=== PATIENT | female | born 1965 | race Caucasian/White ===

== ENCOUNTER 2020-04-09 01:19 | Outpatient (CLI) | payer OTHER, SELFPAY ==
[2020-04-09 20:51] LABS: SARS-CoV-2 RNA PCR Negative
== END 2020-04-09 01:20 | disposition home or self-care (01) ==
LOC: ANHCOVIDDT 01:19
PROVIDERS: PCP Internal Medicine; Visit Provider Internal Medicine Gastroenterology
DX: Z01.812 Encounter for preprocedural laboratory examination (principal); Z20.828 Contact with and (suspected) exposure to other viral communicable diseases
CPT/HCPCS: 87635; C9803; U0003

== ENCOUNTER 2020-04-11 01:33 | Day surgery (SDC) | payer OTHER, SELFPAY ==
[2020-04-04 14:24] VITALS: BMI 30.3
--- NOTE | 2020-04-10 12:24 | WPDANESEPPF ---
Anes - Initial Pre Proc Eval Procedure: Operation Date: 04/11/20 07:30 Proposed Procedures p Screening Colonoscopy - John Douglass MD Date/Time: 04/10/20 12:24 Surgeon: John Douglass MD Pre Op Diagnosis: Neoplasm Screening Patient Data Age: 54 Gender: F Height: 1.66 m Weight: 84 kg Allergies Allergy/AdvReac Type Severity Reaction Status Date / Time No Known Allergies Allergy Verified 04/11/20 06:12 Home Medications Medication Instructions Recorded Confirmed Type blood sugar diagnostic #10 each 04/15/19 03/19/20 History fluticasone propionate 50 2 spray NASAL DAILY 04/15/19 04/04/20 History mcg/actuation nasal spray,suspension ibuprofen-diphenhydramine citrate 2 cap PO ONCE 04/15/19 04/04/20 History 200 mg-38 mg tablet blood sugar diagnostic #100 each 07/21/19 03/19/20 Rx blood-glucose meter #1 each 07/21/19 03/19/20 Rx lancets 30 gauge #100 each 07/21/19 03/19/20 Rx lancing device with lancets kit #1 each 07/21/19 03/19/20 Rx venlafaxine 75 mg capsule,extended See Rx Instructions .ROUTE 07/26/19 04/04/20 Rx release 24 hr .COMPLEX #30 cap levocetirizine 5 mg tablet 5 mg PO DAILY #30 tablet 08/11/19 04/04/20 Rx atorvastatin 20 mg tablet 20 mg PO DAILY #90 tablet 12/25/19 04/04/20 Rx metformin 1,000 mg tablet 1,000 mg PO BID #180 tablet 01/12/20 04/04/20 Rx albuterol sulfate 90 mcg/actuation 1 puff INHALATION Q4-6H PRN #18 gm 02/13/20 04/04/20 Rx aerosol inhaler empagliflozin 10 mg tablet 10 mg PO QAM #90 tablet 02/23/20 04/04/20 Rx blood-glucose sensor #3 each 03/01/20 03/19/20 Rx lisinopril 2.5 mg tablet 5 mg PO DAILY #180 tablet 03/01/20 04/04/20 Rx dulaglutide 1.5 mg/0.5 mL 1.5 mg SUBCUT WEEKLY 30 Days #2.5 03/19/20 04/04/20 Rx subcutaneous pen injector ml trazodone 100 mg tablet 200 mg PO .hs #180 tablet 03/19/20 04/04/20 Rx Patient hx anesthesia problems: none Family hx anesthesia problems: none PMFSH Past Medical History Medical History (Updated 04/10/20 @ 12:26 by Agusto Rincon MD) Asthma Diabetes Hyperlipidemia Hypertension Obesity Sleep apnea in adult Type 2 diabetes mellitus without complications Surgical History Surgical History History of hysterectomy Hx of tonsillectomy Family History Family History Grandparent Family history of malignant neoplasm of breast in first degree relative Other Anemia Arthritis Asthma COPD (chronic obstructive pulmonary disease) Cancer Depression Diabetes mellitus Family history of malignant neoplasm Family history of malignant neoplasm of brain Family history of type 1 diabetes mellitus Hypertension Social History Social History Smoking packs per day: 0.75 Smoking cigarettes per day: 15.0 Years smoked: 25 Smoking pack-years: 18.75 Smoking status: Former smoker Second hand tobacco smoke exposure: Yes Smoking end date: 06/07/15 Alcohol intake: current Drinks per week: 20 Substance use: never Substance use type: does not use Living arrangements: with family Spiritual care concerns: No Anes - Eval Final PreProcedure Day of Procedure 04/10/20 12:24 Patient weight: obese Heart: regular rate and rhythm Lungs: clear to auscultation and normal air movement Airway: Mallampati scale class II Neurological: alert and oriented Last oral intake: >/= 8 hours ASA classification: III Emergent: no Anesthetic plan: proceed Anesthesia type and monitoring: general GIVS Informed Consent: The patient's anesthetic plan and its attendant risks and benefits were discussed with the patient/family/POA. Questions were solicited and answers provided to the satisfaction of the patient/family/POA.
[2020-04-11 06:13] VITALS: BP 107/65; PULSE 84; RESP 20; TEMP 36.8; O2SAT 97
[2020-04-11] MEDS: LACTATED RINGERS 1,000 ML 150 ML IV CONT (06:37)
[2020-04-11 06:40] LABS: Glucose Point of Care 179 (65-105)
--- NOTE | 2020-04-11 07:47 | WPDGICN ---
Assessment and Plan Assessment and plan (1) Encounter for screening colonoscopy: Code(s): Z12.11 - Encounter for screening for malignant neoplasm of colon Status: Acute Assessment and Plan: Patient presents for screening colonoscopy because of her age. She states that although being adopted her biological parents have a history of colon polyps. Plan is for surveillance colonoscopy now and at intervals in the future. GI Consult Note Consult date/time: 04/11/20 07:47 HPI: Rima Maguire is a 54 year old female Seen in evaluation at the request of Dr. Barrios. patient presents for neoplasia screening. Patient states that her weight appetite bowel movements are normal. She denies abdominal pain. Patient states her family history biological parents have had a history of colon polyps. Patient states that she is adopted. Review of Systems Review of Systems: All systems reviewed & are unremarkable except as noted in HPI and below PMFSH Past Medical History Medical History (Updated 04/11/20 @ 07:49 by John Douglass MD) Asthma Diabetes Hyperlipidemia Hypertension Obesity Sleep apnea in adult Type 2 diabetes mellitus without complications Surgical History Surgical History History of hysterectomy Hx of tonsillectomy Family History Family History Grandparent Family history of malignant neoplasm of breast in first degree relative Other Anemia Arthritis Asthma COPD (chronic obstructive pulmonary disease) Cancer Depression Diabetes mellitus Family history of malignant neoplasm Family history of malignant neoplasm of brain Family history of type 1 diabetes mellitus Hypertension Social History Social History Smoking packs per day: 0.75 Smoking cigarettes per day: 15.0 Years smoked: 25 Smoking pack-years: 18.75 Smoking status: Former smoker Second hand tobacco smoke exposure: Yes Smoking end date: 06/07/15 Alcohol intake: current Drinks per week: 20 Substance use: never Substance use type: does not use Living arrangements: with family Spiritual care concerns: No Meds Home Medications and Allergies Home Medications Medication Instructions Recorded Confirmed Type blood sugar diagnostic #10 each 04/15/19 03/19/20 History fluticasone propionate 50 2 spray NASAL DAILY 04/15/19 04/04/20 History mcg/actuation nasal spray,suspension ibuprofen-diphenhydramine citrate 2 cap PO ONCE 04/15/19 04/04/20 History 200 mg-38 mg tablet blood sugar diagnostic #100 each 07/21/19 03/19/20 Rx blood-glucose meter #1 each 07/21/19 03/19/20 Rx lancets 30 gauge #100 each 07/21/19 03/19/20 Rx lancing device with lancets kit #1 each 07/21/19 03/19/20 Rx venlafaxine 75 mg capsule,extended See Rx Instructions .ROUTE 07/26/19 04/04/20 Rx release 24 hr .COMPLEX #30 cap levocetirizine 5 mg tablet 5 mg PO DAILY #30 tablet 08/11/19 04/04/20 Rx atorvastatin 20 mg tablet 20 mg PO DAILY #90 tablet 12/25/19 04/04/20 Rx metformin 1,000 mg tablet 1,000 mg PO BID #180 tablet 01/12/20 04/04/20 Rx albuterol sulfate 90 mcg/actuation 1 puff INHALATION Q4-6H PRN #18 gm 02/13/20 04/04/20 Rx aerosol inhaler empagliflozin 10 mg tablet 10 mg PO QAM #90 tablet 02/23/20 04/04/20 Rx blood-glucose sensor #3 each 03/01/20 03/19/20 Rx lisinopril 2.5 mg tablet 5 mg PO DAILY #180 tablet 03/01/20 04/04/20 Rx dulaglutide 1.5 mg/0.5 mL 1.5 mg SUBCUT WEEKLY 30 Days #2.5 03/19/20 04/04/20 Rx subcutaneous pen injector ml trazodone 100 mg tablet 200 mg PO .hs #180 tablet 03/19/20 04/04/20 Rx Allergies Allergy/AdvReac Type Severity Reaction Status Date / Time No Known Allergies Allergy Verified 04/11/20 06:12 Vital Signs Vital Signs - 24 hr 04/11/20 06:13 Temperature 98.2 F Pulse Rate 84 Respiratory Rate 20 Blood Pressure 107
[2020-04-11 07:53] VITALS: BP 100/64; PULSE 75; RESP 14; O2SAT 98
[2020-04-11 08:03] VITALS: BP 97/62; PULSE 73; RESP 15; O2SAT 98
[2020-04-11 08:13] VITALS: BP 111/72; PULSE 71; RESP 13; O2SAT 98
== END 2020-04-11 08:40 | disposition home or self-care (01) ==
PROVIDERS: PCP Internal Medicine; Visit Provider Internal Medicine Gastroenterology
PROC: 0DJD8ZZ Inspection of Lower Intestinal Tract, Via Natural or Artificial Opening Endoscopic (ICD-10-PCS; CPT 45378; principal; 2020-04-11 07:30)
DX: Z12.11 Encounter for screening for malignant neoplasm of colon (principal); D12.5 Benign neoplasm of sigmoid colon; K64.8 Other hemorrhoids; Z83.71 Family history of colonic polyps; E11.9 Type 2 diabetes mellitus without complications; I10 Essential (primary) hypertension; J45.909 Unspecified asthma, uncomplicated; G47.30 Sleep apnea, unspecified; E66.9 Obesity, unspecified; Z68.30 Body mass index [BMI] 30.0-30.9, adult; Z87.891 Personal history of nicotine dependence; Z79.84 Long term (current) use of oral hypoglycemic drugs
CPT/HCPCS: 45385; 88305; J2704; J7120

== ENCOUNTER 2022-03-08 01:15 | Emergency (ER) | payer SELFPAY ==
[2022-03-08 01:24] VITALS: BP 183/69; PULSE 69; RESP 19; TEMP 36.8; O2SAT 100
--- NOTE | 2022-03-08 01:47 | PC.NURSE ---
Patient wheeled out of the waiting room by her visitor yelling this fucking hurts! Take me to another hospital! I am no waiting! You heathers, dons, this is fucking stupid and this fucking hurts! Patient was rolling on the floor in the waiting room yelling. Patient then got into a w/c and wheeled outside and left the ED before being told of the risks of leaving before being seen by a provider. Left at 0150.
== END 2022-03-08 02:05 | disposition left against medical advice (07) ==
LOC: ANHED 01:58
PROVIDERS: PCP Internal Medicine
DX: Z53.21 Procedure and treatment not carried out due to patient leaving prior to being seen by health care provider (principal)
CPT/HCPCS: 99199

== ENCOUNTER 2022-03-08 02:17 | Emergency (ER) | payer SELFPAY ==
--- NOTE | ~2022-03-08 | CT_ITS ---
EXAMINATION: CT abdomen pelvis w con DATE: 03/08/2022 05:44 INDICATION: RUQ abd pain TECHNIQUE: Computed tomography (CT) of the abdomen and pelvis was performed with 100 mL Omnipaque-350 intravenous contrast. Automated exposure control and iterative reconstruction technique were employe d. The dose-length product was 900.85 mGy-cm. COMPARISON: None. FINDINGS: Lower thorax: Unremarkable Liver: Fatty infiltrated. Ill-defined hyperenhancing areas peripherally near the gallbladder fossa, l ikely represents fatty sparing or transient arterial differences. Biliary/Gallbladder: Gallbladder is normal. No bile duct dilation. Pancreas: No mass or duct dilation. Spleen: Normal. Adrenals:No mass. Kidneys: Subcentimeter left lower pole hypodensity, too small to characterize. No suspicious mass, ca lcification, or significant hydronephrosis GI tract: Distal esophageal and gastric wall edema. Hypermobile cecum. No small or large bowel dilati on. Appendix is subhepatic. Mesentery/Peritoneum: No ascites, mass, or free air. Retroperitoneum: No mass. Atherosclerotic abdominal aortic and/or arterial calcifications. Pelvis: Pelvic organs are within normal limits. Soft Tissues: Soft tissues and body wall unremarkable. Bones: No acute osseous finding. IMPRESSION: Steatosis. Esophagitis/gastritis. Reviewed, dictated and finalized at location K.
--- NOTE | ~2022-03-08 | US_ITS ---
EXAMINATION: US abdomen limited DATE: 03/08/2022 09:02 INDICATION: Right upper quadrant abdominal pain TECHNIQUE: Multiple grayscale and Doppler ultrasound images of the abdomen were obtained. COMPARISON: CT dated 03/08/2022 FINDINGS: The pancreatic head and body are normal in appearance. The pancreatic tail is not visualized. The vi sualized proximal to mid aorta is normal. The visualized proximal inferior vena cava is normal. Liver has normal contour, with a smooth surface. There is increased parenchymal echogenicity and coarsened echotexture consistent with diffuse hepatic steatosis. No liver lesion identified. No intrahepatic biliary duct dilation suspected. Portal venous flow was seen in the hepatopetal, normal direction and has normal Doppler waveform. The gallbladder is normal in appearance. There is no cholelithiasis. T he common bile duct measures 3-4 mm, which is normal. Sonographic Rich sign was reported as negativ e by the surgical clinical reviewer. The right kidney measures 11.6 x 4.4 x 5.8 cm. There is normal renal contour an d echogenicity with no hydronephrosis. IMPRESSION: 1. Diffuse hepatic steatosis. Reviewed, dictated and finalized at location A.
[2022-03-08 02:25] VITALS: BP 101/71; PULSE 97; RESP 20; TEMP 36.8; O2SAT 98
--- NOTE | 2022-03-08 03:23 | ED.ABDPAIN ---
HPI - Abdominal Pain General Chief Complaint: Abdominal Pain Stated Complaint: RUQ pain Time Seen by Provider: 03/08/22 03:08 Source: RN notes reviewed History of Present Illness HPI narrative: Patient presents emergency department from home for abdominal pain. Patient dates pain began approximately 7 PM tonight pain was located in the right upper quadrant and did not radiate is described as sharp and stabbing. States the pain is improved at this time but is still present she denies any nausea vomiting or diarrhea with the symptoms she denies any fevers or chills states she did not take anything for the pain Related Data Home Medications Medication Instructions Recorded Confirmed blood sugar diagnostic #10 ea 04/15/19 05/18/21 fluticasone propionate 50 2 spray intranasal DAILY 04/15/19 05/18/21 mcg/actuation nasal spray,suspension (Allergy Relief (fluticasone)) ibuprofen-diphenhydramine citrate 2 cap PO ONCE 04/15/19 05/18/21 200 mg-38 mg tablet (Advil PM) Allergies Allergy/AdvReac Type Severity Reaction Status Date / Time No Known Allergies Allergy Verified 03/08/22 02:30 Review of Systems Review of Systems: Gen.: Denies fevers or chills ENT: Denies congestion Respiratory: Denies shortness of breath or cough CV: Denies chest pain or palpitations GI: see HPI Musculoskeletal: Denies back pain or muscle pain Neuro: Denies numbness, tingling, weakness or focal weakness Skin: Denies rash Except as documented, all other systems reviewed and negative PMFSH Past Medical History Medical History Asthma Diabetes Hyperlipidemia Hypertension Obesity Sleep apnea in adult Type 2 diabetes mellitus without complications Surgical History Surgical History History of hysterectomy Hx of tonsillectomy Family History Family History Grandparent Family history of malignant neoplasm of breast in first degree relative Other Anemia Arthritis Asthma COPD (chronic obstructive pulmonary disease) Cancer Depression Diabetes mellitus Family history of malignant neoplasm Family history of malignant neoplasm of brain Family history of type 1 diabetes mellitus Hypertension Social History Social History Smoking packs per day: 0.75 Smoking cigarettes per day: 15.0 Years smoked: 25 Smoking pack-years: 18.75 Smoking status: Former smoker Second hand tobacco smoke exposure: Yes Smoking end date: 06/07/15 Alcohol intake: current Drinks per week: 20 Substance use: never Substance use type: does not use Spiritual care concerns: No Exam Narrative: APPEARANCE: No acute distress, nontoxic, resting in bed HEENT: Normocephalic, atraumatic, OMM RESPIRATORY: No respiratory distress, clear to auscultation bilaterally with no rhonchi wheezing or rales CARDIOVASCULAR: RRR s murmur ABDOMINAL: Soft nondistended tender palpation right upper quadrant no tenderness left upper quadrant, left lower quadrant and right lower quadrant no rebound or guarding MUSCULOSKELETAl: Moves all extremities. No clubbing, cyanosis or edema. NEURO: Awake and alert. Following commands, speech normal, no focal deficits SKIN:: Warm, dry. Normal Color PSYCHIATRIC: Normal affect/mood Course Course Emergency Course: Patient states that they are feeling much better at this time. States abdominal pain has improved. Repeat abdominal exam shows the patient's abdomen to be soft with no surgical abdomen present. Discussed with patient results of workup and diagnosis. Discussed need for follow-up with primary care physician, reasons to return to the emergency department in proper use of medication. Patient understands and agrees to current treatment plan with pain in right upper quadrant is improved suspec
[2022-03-08] MEDS: SODIUM CHLORIDE 0.9% IV 1,000 ML 999 ML IV CONT (04:09)
[2022-03-08] MEDS: KETOROLAC 30 MG/ML VIAL (*BKC) IV PUSH (04:09)
[2022-03-08 04:21] LABS: Basophils Percent Auto 0.5 % (0.2-1.2); Eosinophils Absolute Auto 0.1 K/mm3 (0-0.3); Eosinophils Percent Auto 1.9 % (0-4.4); Hematocrit 42.1 % (37.0-47.0); Hemoglobin 14.5 g/dL (12.0-15.0); Immature Granulocyte Absolute 0.02 K/mm3 (0.00-0.031); Immature Granulocyte Percent A 0.4 % (0-0.5); Mean Corpuscular HGB Conc 34.4 g/dl (32-36); Mean Corpuscular Hemoglobin 33.6 pg (26-34); Mean Corpuscular Volume 97.7 fl (80-100); Monocytes Absolute Auto 0.7 K/mm3 (0.1-0.6); Monocytes Percent Auto 11.4 % (2.6-8.5); Neutrophils Absolute Auto 2.1 K/mm3 (1.3-6.7); Neutrophils Percent Auto 36.8 % (45.5-73.1); Platelet Count Result 260 k/mm3 (150-375); Red Blood Count 4.31 M/mm3 (4.2-5.4); Red Cell Distribution Width 11.8 % (11.5-14.5); White Blood Count 5.7 K/mm3 (4.5-10.0)
[2022-03-08 04:22] LABS: Appearance Urine Clear (Clear); Bilirubin Urine Negative (Negative); Blood Urine Negative (Negative); Color Urine Yellow (Yellow); Glucose Urine UA Negative (Negative); Ketones Urine Negative (Negative); Leukocyte Esterase Ur 1+ LEU/UL (Negative); Nitrate Urine Negative (Negative); Protein Urine Negative (Negative); Specific Grav Ur <= 1.005 (1.001-1.035); Urobilinogen Urine 0.2 mg/dL (<2.0); pH Urine 5.5 (5.0-9.0)
[2022-03-08 04:28] LABS: Bacteria Urine Trace /hpf; RBC Urine 0-2 /hpf (0-2); Squamous Epithelial Cell Urine Rare /hpf (Few); WBC Urine 0-3 /hpf
[2022-03-08 04:30] LABS: Add Urine Microscopic? YES; Alanine Aminotransferase 40 U/L (6-35); Albumin Level 4.9 g/dL (3.5-5.1); Alkaline Phosphatase 66 U/L (38-126); Anion Gap 10 mmol/L (8-16); Aspartate Amino Transferase 41 U/L (14-36); Bilirubin,Total 0.3 mg/dL (0.2-1.3); Blood Urea Nitrogen 9 mg/dL (7-17); Calcium 9.3 mg/dL (8.4-10.2); Carbon Dioxide 28 mmol/L (22-30); Chloride 105 mmol/L (98-107); Estimated Glomerular Filt Rate > 60; Glucose 128 mg/dL (65-110); Lipase 373 U/L (23-300); Potassium 3.8 mmol/L (3.4-5.0); Sodium 143 mmol/L (137-145)
[2022-03-08 05:00] VITALS: BP 91/58; PULSE 91; RESP 18; O2SAT 96
[2022-03-08 05:57] VITALS: BP 101/72; PULSE 94; RESP 18; O2SAT 99
--- NOTE | 2022-03-08 07:10 | PC.NURSE ---
Report given to PRIAY Sarabia.
[2022-03-08] MEDS: FAMOTIDINE 20 MG/2 ML VIAL IV PUSH (07:37)
[2022-03-08 09:42] VITALS: BP 124/86; PULSE 78; RESP 16; O2SAT 100
== END 2022-03-08 09:42 | disposition home or self-care (01) ==
PROVIDERS: Emergency Provider Emergency Medicine; PCP Internal Medicine
DX: R10.11 Right upper quadrant pain (principal); J45.909 Unspecified asthma, uncomplicated; E11.9 Type 2 diabetes mellitus without complications; E78.5 Hyperlipidemia, unspecified; I10 Essential (primary) hypertension; G47.30 Sleep apnea, unspecified; Z87.891 Personal history of nicotine dependence; Z79.84 Long term (current) use of oral hypoglycemic drugs; Z79.51 Long term (current) use of inhaled steroids; Z79.899 Other long term (current) drug therapy
CPT/HCPCS: 36415; 74177; 76705; 80053; 81001; 83690; 85025; 96361; 96374; 96375; 99284; J1885; J7030; Q9967

== ENCOUNTER 2022-11-12 16:29 | Outpatient (CLI) | payer OTHER, SELFPAY ==
--- NOTE | ~2022-11-12 | MM_ITS ---
EXAMINATION: MM screening nighat BI w gisell HISTORY: Screening mammogram, family history of breast cancer in her mother. TECHNIQUE: Craniocaudal and mediolateral oblique 3-D tomosynthesis images were obtained and synthetic 2-D images were generated. CAD analysis was submitted and interpreted. COMPARISON: 08/17/2017 BREAST PARENCHYMAL COMPOSITION:The breasts are almost entirely fatty FINDINGS: No suspicious mass, calcification, or architectural distortion are identified in either shauna ast to suggest malignancy. There has been no suspicious interval change. IMPRESSION: No mammographic evidence of malignancy. Recommend routine screening mammography in one year. BI-RADS Category 1: Negative Reviewed, dictated and finalized at location .
== END 2022-11-12 16:30 | disposition home or self-care (01) ==
PROVIDERS: PCP Internal Medicine; Visit Provider Internal Medicine
DX: Z12.31 Encounter for screening mammogram for malignant neoplasm of breast (principal)
CPT/HCPCS: 77063; 77067

== ENCOUNTER 2023-11-28 23:38 | Inpatient (IN) | payer BC, SELFPAY ==
--- NOTE | ~2023-11-28 | XR_ITS ---
Portable chest x-ray Comparison: 03/18/2019 Clinical History: Preoperative evaluation Findings: Lungs are clear, without focal consolidation or pleural effusion. Cardiomediastinal silho uette is stable. Bones and soft tissues are unremarkable. Impression: Clear lungs. Reviewed, dictated and finalized at location . Impression: Clear lungs.
--- NOTE | ~2023-11-28 | CT_ITS ---
CT of the Abdomen and Pelvis: Indication: Abdominal pain Technique: 2.5 mm axial scans were obtained through the abdomen and pelvis following intravenous adm inistration of 100 cc of Omnipaque 350. Dose reduction technique was used on this scan by utilizing a utomated exposure control and iterative reconstruction technique. The dose-length product (DLP) was 6 31.49 mGy-cm. COMPARISON: 03/08/2022 Findings: Scans through the lung bases are unremarkable. There is diffuse hepatic steatosis. The spleen, pancreas, gallbladder, adrenals and kidneys are withi n normal limits. No evidence of aortic aneurysm. No lymphadenopathy. No bowel obstruction. Retrocecal appendix is dilated to 12 mm with periappendiceal inflammatory alexander e and probable appendicolith present. No abscess or free air. Images through the pelvis were performed. Urinary bladder unremarkable. No pelvic mass seen. Status p ost hysterectomy. No ascites. Impression: Acute appendicitis, as detailed above. No abscess or free air. Reviewed, dictated and finalized at location . Impression: Acute appendicitis, as detailed above. No abscess or free air.
[2023-11-28 23:46] VITALS: BP 170/88; PULSE 112; RESP 15; TEMP 37.4; O2SAT 96
[2023-11-29] VITALS (21 sets, daily range): BP systolic 104–140; BP diastolic 28–91; PULSE 78–117; RESP 14–20; TEMP 36.8–37.6; O2SAT 94–100; BMI 31.1
--- NOTE | 2023-11-29 00:04 | ECG_ITS ---
Test Date: 2023-11-29 00:08:47 Measurements Intervals [place] Rate: 108 P: 60 FL: 147 QRS: 67 QRSD: 79 T: 48 QT: 362 QTc: 487 Interpretive Statements SINUS TACHYCARDIA ABNORMAL RHYTHM ECG No previous ECG available for comparison Electronically Signed On 11-29-2023 07:28:27 CDT by Seamus Blunt M.D.
[2023-11-29 00:09] LABS: Basophils Absolute Auto 0.1 K/mm3 (0.0-0.1); Basophils Percent Auto 0.3 % (0.2-1.2); Eosinophils Absolute Auto 0.1 K/mm3 (0-0.3); Eosinophils Percent Auto 0.7 % (0-4.4); Hemoglobin 14.4 g/dL (12.0-15.0); Immature Granulocyte Absolute 0.04 K/mm3 (0.00-0.031); Immature Granulocyte Percent A 0.3 % (0-0.5); Lymphocytes Absolute Auto 2.42 K/mm3 (0.9-3.2); Lymphocytes Percent Auto 16.3 % (18.3-44.2); Mean Corpuscular HGB Conc 34.3 g/dl (32-36); Mean Corpuscular Hemoglobin 32.7 pg (26-34); Mean Corpuscular Volume 95.2 fl (80-100); Mean Platelet Volume 9.3 fl (7.4-10.4); Monocytes Absolute Auto 1.2 K/mm3 (0.1-0.6); Neutrophils Percent Auto 74.4 % (45.5-73.1); Platelet Count Result 283 k/mm3 (150-375); Red Blood Count 4.41 M/mm3 (4.2-5.4); Red Cell Distribution Width 11.2 % (11.5-14.5); White Blood Count 14.8 K/mm3 (4.5-10.0)
[2023-11-29 00:22] LABS: Alanine Aminotransferase 35 U/L (6-35); Albumin Level 5.1 g/dL (3.5-5.1); Alkaline Phosphatase 77 U/L (38-126); Anion Gap 14 mmol/L (4-12); Aspartate Amino Transferase 32 U/L (14-36); Bilirubin,Total 0.7 mg/dL (0.2-1.3); Blood Urea Nitrogen 10 mg/dL (7-17); Calcium 9.8 mg/dL (8.4-10.2); Carbon Dioxide 22 mmol/L (22-30); Chloride 103 mmol/L (98-107); Estimated CRCL calculation 79 ml/min; Estimated Glomerular Filt Rate > 60; Glucose 173 mg/dL (65-110); Lipase 154 U/L (23-300); Potassium 3.7 mmol/L (3.4-5.0); Sodium 139 mmol/L (137-145)
[2023-11-29 00:32] LABS: Appearance Urine Cloudy (Clear); Bilirubin Urine Negative (Negative); Blood Urine Trace (Negative); Color Urine Yellow (Yellow); Glucose Urine UA 1+ mg/dL (Negative); Ketones Urine 2+ mg/dL (Negative); Leukocyte Esterase Ur 3+ LEU/UL (Negative); Nitrate Urine Negative (Negative); Protein Urine Negative (Negative); Specific Grav Ur 1.016 (1.001-1.035); Urobilinogen Urine 0.2 mg/dL (<2.0); pH Urine 5.5 (5.0-9.0)
[2023-11-29 00:33] LABS: Add Urine Microscopic? YES
[2023-11-29] MEDS: HYDROmorphone HCL INJ (*CRX) 1 MG/ML SYR IV PUSH ×2 (01:12→03:21)
[2023-11-29] MEDS: ONDANSETRON INJ 4 MG/2 ML VIAL 8 MG IV PUSH (01:12)
[2023-11-29] MEDS: SODIUM CHLORIDE 0.9% IV 2,500 ML 999 ML IV CONT (01:13)
--- NOTE | 2023-11-29 01:52 | ED.GENADULT ---
HPI - General Adult General Chief complaint: Abdominal Pain Stated complaint: abd pain Time Seen by Provider: 11/29/23 00:06 History of Present Illness HPI narrative: This is a 50-year-old female presenting with right-sided flank pain. The pain started at 2:00 a.m. this afternoon although was quite mild at that time. now has become quite severe. Pain is described as a sharp pain on the right side. It is associated with nausea and vomiting. Last bowel movement was this morning. Patient denies fevers chest pain or difficulty breathing. She still has her gallbladder and appendix. No history of kidney stones. Related Data Home Medications Medication Instructions Recorded Confirmed blood sugar diagnostic #10 ea 04/15/19 10/13/23 Allergies Allergy/AdvReac Type Severity Reaction Status Date / Time No Known Allergies Allergy Verified 10/13/23 07:56 [facility] Past Medical History Medical History Asthma Diabetes Hyperlipidemia Hypertension Obesity Sleep apnea in adult Type 2 diabetes mellitus without complications Surgical History Surgical History History of hysterectomy Hx of tonsillectomy Family History Family History Grandparent Family history of malignant neoplasm of breast in first degree relative Other Anemia Arthritis Asthma COPD (chronic obstructive pulmonary disease) Cancer Depression Diabetes mellitus Family history of malignant neoplasm Family history of malignant neoplasm of brain Family history of type 1 diabetes mellitus Hypertension Social History Social History Smoking packs per day: 0.75 Smoking cigarettes per day: 15.0 Years smoked: 25 Smoking pack-years: 18.75 Smoking status: Former smoker Second hand tobacco smoke exposure: Yes Smoking end date: 06/07/15 Alcohol intake: current Drinks per week: 20 Substance use: never Substance use type: does not use Lack of Transportation: No Lack of Food: Never True Current Housing: I Have Housing Concerned About Future Housing: No Difficulty Paying Gas/Electric Bills: No Difficulty Paying for Meds: No Currently Unemployed: No Education: Associate Degree Difficulty w/ Childcare or Family Care: No Living arrangements: with family Spiritual care concerns: No Exam Narrative: APPEARANCE: Patient is lying on the bed and can not seem to get comfortable Head: atraumatic. EYES: EOMI, NOSE: Atraumatic NECK: Trachea midline RESPIRATORY: No increased rate of breathing CARDIOVASCULAR: RRR, ABDOMINAL: tenderness to palpation on the entire right side of the abdomen. Right CVA tenderness. MUSCULOSKELETAl: No obvious deformities NEURO: Alert. Moving 4/4 extremities SKIN:: Warm, dry. Normal color PSYCHIATRIC: Normal affect Course Vital Signs Vital signs: Vital Signs Temperature 99.3 F 11/28/23 23:46 Pulse Rate 112 H 11/28/23 23:46 Respiratory Rate 15 11/28/23 23:46 Blood Pressure 170/88 H 11/28/23 23:46 Pulse Oximetry 96 11/28/23 23:46 Oxygen Delivery Room Air 11/28/23 23:46 Temperature 99.3 F 11/28/23 23:46 Pulse Rate 111 H 11/29/23 05:10 Respiratory Rate 17 11/29/23 05:10 Blood Pressure 114/79 11/29/23 05:10 Pulse Oximetry 96 11/29/23 05:10 Oxygen Delivery Room Air 11/28/23 23:46 Medical Decision Making MDM Narrative Medical decision making narrative: -Course: 58-year-old female presenting with 1 day of right-sided abdominal pain. White count 14.8. CT showed acute appendicitis without evidence perforation. Patient given fluid resuscitation, Zosyn, pain medication and antiemetics. Case was discussed with Dr. Chris Nunez who has accepted the admission. -DDX includes but is not limited to: Kidney stone, gallbl
[2023-11-29] MEDS: PIPERACILLN/TAZ 3.375GM/NS50ML 3.375 GM/50 ML BAG IVPB ×2 (04:42→12:40)
[2023-11-29 05:16] LABS: Lactic Acid Reflex 0.8 mmol/L (0.7-2.0)
[2023-11-29] MEDS: LACTATED RINGERS 1,000 ML 125 ML IV CONT ×2 (05:29→19:35)
[2023-11-29] MEDS: IBUPROFEN IV 800 MG/200 ML 800 MG/200 ML BAG 400 MG IVPB (05:31)
--- NOTE | 2023-11-29 06:24 | ADMGEN ---
This patient, Rima Maguire, was admitted to 2 Medical Room 250-01. Patient/family oriented to hospital policies and general routines including ID bracelet, bed and alarms, visiting hours, pain management, procedures, bathroom and other care routines, personal items, smoking policy, room service/diet, and visiting hours. Information on how to activate the Rapid Response Team has been discussed. Patient/Family are encouraged to report perceived risks to care and to ask questions if they do not understand what they are told or what they should do.
--- NOTE | 2023-11-29 08:35 | PM.IMHP ---
H&P: HPI History of Present Illness Date/Time: 11/29/23 08:35 Chief Complaint: Abdominal pain Narrative: This is a 58-year-old woman with a history of type 2 diabetes, HTN, ALEXEY, and hyperlipidemia, who presented to the ER last night with complaints of abdominal pain starting yesterday around 2:00 pm. She reports it was a cramping pain in her RLQ. This pain progressed throughout the day and into the evening. She developed nausea and vomiting. Her pain was aggravated by movement and deep breathing. She also reports having a similar mild pain in her RLQ intermittently over the past month or so. She didn't pay attention to this because it would typically subside in a short amount of time. Workup in the ER showed mild leukocytosis with a WBC count of 14,[address] evidence of acute appendicitis. No perforation or abscess seen on CT. She was admitted in this setting and started on broad-spectrum IV antibiotics, IV fluids, and made NPO. Previous abdominal surgeries include a total abdominal hysterectomy. Review of Systems Review of Systems: All systems reviewed & are unremarkable except as noted in HPI and below PMFSH Past Medical History Medical History Asthma Diabetes Hyperlipidemia Hypertension Obesity Sleep apnea in adult Type 2 diabetes mellitus without complications Surgical History Surgical History History of hysterectomy Hx of tonsillectomy Family History Family History Grandparent Family history of malignant neoplasm of breast in first degree relative Other Anemia Arthritis Asthma COPD (chronic obstructive pulmonary disease) Cancer Depression Diabetes mellitus Family history of malignant neoplasm Family history of malignant neoplasm of brain Family history of type 1 diabetes mellitus Hypertension Social History Social History Smoking packs per day: 0.75 Smoking cigarettes per day: 15.0 Years smoked: 25 Smoking pack-years: 18.75 Smoking status: Former smoker Second hand tobacco smoke exposure: Yes Smoking end date: 06/07/15 Alcohol intake: current Drinks per week: 35 Substance use: never Substance use type: does not use Do You Feel Safe in your Home?: Yes Lack of Transportation: No Lack of Food: Never True Current Housing: I Have Housing Concerned About Future Housing: No Difficulty Paying Gas/Electric Bills: No Difficulty Paying for Meds: No Currently Unemployed: No Education: Associate Degree Difficulty w/ Childcare or Family Care: No Living arrangements: with family Spiritual care concerns: No Meds Home Medications and Allergies Home Medications Medication Instructions Recorded Confirmed Type blood sugar diagnostic #10 ea 04/15/19 11/29/23 History blood-glucose meter (YaSabeTouch #1 ea 07/21/19 11/29/23 Rx Ultra2 Meter kit) lancets 30 gauge (Wenwo DelFolica #100 ea 07/21/19 11/29/23 Rx Plus Lancet) lancing device with lancets kit #1 ea 07/21/19 11/29/23 Rx (Wenwo DelFolica Lancing Device kit) blood sugar diagnostic #100 ea 02/16/22 11/29/23 Rx rizatriptan 10 mg tablet (Maxalt) See Rx Instructions PO .COMPLEX #9 05/25/22 11/29/23 Rx tabs blood-glucose meter,continuous #1 ea 04/08/23 11/29/23 Rx (Dexcom G6 White Metal Corrosion Proofer) blood-glucose sensor (Dexcom G6 #3 ea 04/08/23 11/29/23 Rx Sensor device) blood-glucose transmitter (Dexcom #1 ea 04/08/23 11/29/23 Rx G6 Transmitter device) metformin 1,000 mg tablet 500 mg PO BID #180 tabs 04/08/23 11/29/23 Rx atorvastatin 40 mg tablet 40 mg PO DAILY #90 tabs 06/03/23 11/29/23 Rx albuterol sulfate 90 mcg/actuation 1 puff inhalation Q4-6H PRN 09/14/23 11/29/23 Rx aerosol inhaler (ProAir HFA) shortness of breath or wheezing #18 grams tirzepatide 7.5 mg/0
[2023-11-29] MEDS: HYDROmorphone HCL INJ (*CRX) 1 MG/ML SYR 0.5 MG IV PUSH ×3 (08:45→14:13)
[2023-11-29 09:23] LABS: Glucose Point of Care 105 mg/dl (65-105)
[2023-11-29 11:44] LABS: Glucose Point of Care 105 mg/dl (65-105)
--- NOTE | 2023-11-29 14:42 | WPDANESEPPF ---
Anes - Initial Pre Proc Eval Procedure: Operation Date: 11/29/23 15:30 Proposed Procedures p Laparoscopic Appendectomy - Delroy Lugo MD Date/Time: 11/29/23 14:42 Surgeon: Chris Nunez MD Pre Op Diagnosis: Appendicitis Patient Data Age: 58 Gender: F Height: 1.65 m Weight: 85 kg Last Vital Signs Temp 98.4 F 11/29/23 10:00 Pulse 113 H 11/29/23 12:00 Resp 20 11/29/23 10:00 BP 131/72 11/29/23 10:00 Pulse Ox 98 11/29/23 10:00 O2 Del Method Nasal Cannula 11/29/23 08:45 O2 Flow Rate 1 11/29/23 08:45 Allergies Allergy/AdvReac Type Severity Reaction Status Date / Time No Known Allergies Allergy Verified 11/29/23 14:40 Home Medications Medication Instructions Recorded Confirmed Type blood sugar diagnostic #10 ea 04/15/19 11/29/23 History blood-glucose meter (Synthaceuch #1 ea 07/21/19 11/29/23 Rx Ultra2 Meter kit) lancets 30 gauge (Synthaceuch DelFever #100 ea 07/21/19 11/29/23 Rx Plus Lancet) lancing device with lancets kit #1 ea 07/21/19 11/29/23 Rx (Real Food Blends DelFever Lancing Device kit) blood sugar diagnostic #100 ea 02/16/22 11/29/23 Rx rizatriptan 10 mg tablet (Maxalt) See Rx Instructions PO .COMPLEX #9 05/25/22 11/29/23 Rx tabs blood-glucose meter,continuous #1 ea 04/08/23 11/29/23 Rx (Dexcom G6 Bell Ringer) blood-glucose sensor (Dexcom G6 #3 ea 04/08/23 11/29/23 Rx Sensor device) blood-glucose transmitter (Dexcom #1 ea 04/08/23 11/29/23 Rx G6 Transmitter device) metformin 1,000 mg tablet 500 mg PO BID #180 tabs 04/08/23 11/29/23 Rx atorvastatin 40 mg tablet 40 mg PO DAILY #90 tabs 06/03/23 11/29/23 Rx albuterol sulfate 90 mcg/actuation 1 puff inhalation Q4-6H PRN 09/14/23 11/29/23 Rx aerosol inhaler (ProAir HFA) shortness of breath or wheezing #18 grams tirzepatide 7.5 mg/0.5 mL 7.5 mg (0.5 mL) subcut WEEKLY #6 mL 09/20/23 11/29/23 Rx subcutaneous pen injector (Mounjaro) empagliflozin 10 mg tablet 10 mg PO QAM #90 tabs 10/26/23 11/29/23 Rx (Jardiance) venlafaxine 150 mg 150 mg PO DAILY #90 caps 10/26/23 11/29/23 Rx capsule,extended release 24 hr lisinopril 5 mg tablet 5 mg PO DAILY #90 tabs 11/16/23 11/29/23 Rx ibuprofen 600 mg tablet 600 mg PO TID PRN Pain (Scale 11/29/23 11/29/23 History Score 1-3) trazodone 100 mg tablet 200 mg PO HS 11/29/23 11/29/23 History Laboratory Tests 11/29/23 11/29/23 11/29/23 00:02 04:57 09:00 WBC 14.8 H K/mm3 (4.5-10.0) RBC 4.41 M/mm3 (4.2-5.4) Hgb 14.4 g/dL (12.0-15.0) Hct 42.0 % (37.0-47.0) MCV 95.2 fl (80-100) MCH 32.7 pg (26-34) MCHC 34.3 g/dl (32-36) RDW 11.2 L % (11.5-14.5) Plt Count 283 k/mm3 (150-375) MPV 9.3 fl (7.4-10.4) Immature Gran % (Auto) 0.3 % (0-0.5) Neut % (Auto) 74.4 H % (45.5-73.1) Lymph % (Auto) 16.3 L % (18.3-44.2) [place] % (Auto) 8.0 % (2.6-8.5) Eos % (Auto) 0.7 % (0-4.4) Baso % (Auto) 0.3 % (0.2-1.2) Lymph # (Auto) 2.42 K/mm3 (0.9-3.2) [place] # (Auto) 1.2 H K/mm3 (0.1-0.6) Eos # (Auto) 0.1 K/mm3 (0-0.3) Baso # (Auto) 0.1 K/mm3 (0.0-0.1) Abs Immat Gran (auto) 0.04 H K/mm3 (0.00-0.031) Absolute Neuts (auto) 11.0 H K/mm3 (1.3-6.7) Absolute Nucleated RBC 0.000 K/mm3 (0.0-0.012) Nucleated RBC % 0.0 % (0.0-0.2) Sodium 139 mmol/L (137-145) Potassium 3.7 mmol/L (3.4-5.0) Chloride 103 mmol/L (98-107) Carbon Dioxide 22 mmol/L (22-30) Anion Gap 14 H mmol/L (4-12) BUN 10 mg/dL (7-17) Creatinine 0.70 mg/dL (0.7-1.0) Estim Creat Clear Calc 79 ml/min Estimated GFR > 60 (59 - ) Glucose 173 H mg/dL (65-110) POC Capillary Glucose 105 mg/dl (65-105) Lactic Acid 0.8 mmo
[2023-11-29 14:58] LABS: Glucose Point of Care 137 mg/dl (65-105)
[2023-11-29] MEDS: LACTATED RINGERS 1,000 ML 30 ML IV CONT ×2 (15:45→17:28)
--- NOTE | 2023-11-29 16:04 | WPDHPUPDATE1 ---
History and Physical Update Update Date/Time: 11/29/23 16:04 History and Physical has been reviewed, including an updated exam of the patient. There are NO changes in the patient's condition. Risks, benefits, and alternatives have been discussed and questions answered. Patient agrees to proceed with procedure.
[2023-11-29] MEDS: BUPivacaine HCL 0.5% PF 30 ML VIAL 20 ML INFILTRATE (16:41)
[2023-11-29] MEDS: LIDO 1%/EPINEPHRINE 1:100,000 20 ML VIAL INFILTRATE (16:41)
[2023-11-29] MEDS: KETOROLAC 30 MG/ML VIAL (*BKC) IV PUSH (17:12)
[2023-11-29] MEDS: fentaNYL CITRATE INJ (*CRX) 100 MCG/2 ML VIAL 25 MCG IV PUSH ×2 (18:08→18:10)
--- NOTE | 2023-11-29 18:12 | W.PM.PROC2 ---
Procedure Note - Detailed Date of Procedure 11/29/23 Pre-op Diagnosis Acute Appendicitis Post-op Diagnosis Same Procedure Performed Laparoscopic appendectomy Surgeon Delroy Lugo MD Audio Production Manager [facility] Anesthesia General Indications patient is a 58-year-old female presented to the emergency room with a 12 to a 18hour history of worsening right lower quadrant abdominal pain. She had elevated white blood cell count of 15,000. CT scan abdomen pelvis showed a dilated and acutely inflamed appendix without perforation or periappendiceal abscess. Findings Patient acute suppurative appendicitis. The appendix was actually located in the right upper quadrant just lateral to the gallbladder as the patient very redundant right colon. This required placement an additional port so the patient ended up with 5 port sites. No perforation or periappendiceal abscess is noted. Description of Procedure After informed consent was obtained patient brought to the operating room she was placed supine position and general endotracheal anesthesia was administered. The abdomen was then prepped and draped usual sterile fashion. Time-out was then performed correctly identifying the patient as well as procedure to be performed. She was already on scheduled IV antibiotics. I then entered the abdomen left upper quadrant utilizing a 5mm Optiview port. Once inside the abdomen insufflated to adequate pneumoperitoneum of 15mmHg of CO2. There were no adhesions to of obscure the view of the area around the umbilicus. I did note that the patient's cecum was riding high and was actually located in the right upper quadrant of the abdomen. I then placed a 12mm umbilical trocar port with direct visualization without difficulty. I then placed a 5mm suprapubic trocar port in the right lower quadrant 5mm trocar port all under direct visualization. Utilizing laparoscopic instruments I was then able to rotate the very mobile cecum medially. I was finally able to identify the inflamed appendix which was in the right upper quadrant the tip of the appendix almost up underneath the right lobe of the liver. Due to the location of the appendix I added another 5mm right upper quadrant trocar port site under direct visualization. Now working through these port sites I was able to find the base of the appendix make a defect through the base the appendix with a Kat dissected. A 45mm Endo-MATTHIAS stapler was then used to divide the appendix flush with the cecum. Then with some blunt dissection utilizing the suction die maker bench stamping tip I was then able to free up the appendix from the surrounding tissues to identify the mesoappendix. Once this was done I then divided the mesoappendix with multiple firings of a vascular load to the Endo-MATTHIAS stapler. The appendix was then placed into an Endo-Catch bag and brought out through the periumbilical trocar port site. It was passed off table sent to pathology for examination. I then irrigated out the right upper quadrant the abdomen and identified once again staple lines of the cecum and to the mesoappendix. These are all intact without evidence of any drainage of feculent material or bleeding. I then irrigated out the right upper quadrant the abdomen very well. Audio Production Manager with sterile saline solution. I aspirated the fluid from this area and hemostasis was good. I then removed all the trocar ports under visualization all port sites appeared hemostatic. I then allowed the abdomen decompressed. I then irrigated all the port sites sterile saline solution. The 12mm periumbilical trocar port fascial defect was then closed utilizing 0 Vicryl suture to close the fascial defect. The skin edges in all the port sites were then approximated utilizing a running subcuticular 4 Monocryl suture. The incisions were then cleaned and skin glue sterile dressings were applied. The patient tolerated the procedure well no complications. All sponges, needles, and ins
[2023-11-29] MEDS: LACTATED RINGERS 500 ML 999 ML IV CONT (20:50)
[2023-11-30] VITALS (8 sets, daily range): BP systolic 114–134; BP diastolic 56–77; PULSE 100–114; RESP 18–24; TEMP 36.6–37.7; O2SAT 94–98
[2023-11-30 00:10] LABS: Glucose Point of Care 207 mg/dl (65-105)
[2023-11-30] MEDS: oxyCODONE HCL (*CRX) 5 MG TAB IR PO ×3 (01:56→15:35)
[2023-11-30 04:48] LABS: Basophils Percent Auto 0.1 % (0.2-1.2); Hematocrit 40.1 % (37.0-47.0); Hemoglobin 13.3 g/dL (12.0-15.0); Immature Granulocyte Percent A 0.7 % (0-0.5); Lymphocytes Absolute Auto 1.09 K/mm3 (0.9-3.2); Lymphocytes Percent Auto 7.7 % (18.3-44.2); Mean Corpuscular HGB Conc 33.2 g/dl (32-36); Mean Corpuscular Hemoglobin 32.6 pg (26-34); Mean Corpuscular Volume 98.3 fl (80-100); Mean Platelet Volume 9.3 fl (7.4-10.4); Monocytes Absolute Auto 0.9 K/mm3 (0.1-0.6); Monocytes Percent Auto 6.7 % (2.6-8.5); Neutrophils Percent Auto 84.8 % (45.5-73.1); Platelet Count Result 223 k/mm3 (150-375); Red Blood Count 4.08 M/mm3 (4.2-5.4); Red Cell Distribution Width 11.4 % (11.5-14.5); White Blood Count 14.1 K/mm3 (4.5-10.0)
[2023-11-30 05:03] LABS: Anion Gap 9 mmol/L (4-12); Blood Urea Nitrogen 4 mg/dL (7-17); Carbon Dioxide 23 mmol/L (22-30); Chloride 102 mmol/L (98-107); Estimated CRCL calculation 94 ml/min; Estimated Glomerular Filt Rate > 60; Glucose 173 mg/dL (65-110); Potassium 3.8 mmol/L (3.4-5.0); Sodium 134 mmol/L (137-145)
[2023-11-30] MEDS: LACTATED RINGERS 1,000 ML 125 ML IV CONT (05:33)
[2023-11-30 06:48] LABS: Glucose Point of Care 144 mg/dl (65-105)
[2023-11-30 08:43] LABS: Glucose Point of Care 138 mg/dl (65-105)
[2023-11-30] MEDS: RIZATRIPTAN BENZOATE 10 MG ODT PO (11:31)
[2023-11-30] MEDS: VENLAFAXINE HCL XR 75 MG CAP.ER.24H 150 MG PO (11:31)
[2023-11-30 12:13] LABS: Glucose Point of Care 176 mg/dl (65-105)
--- NOTE | 2023-11-30 16:21 | PM.DS ---
DS: Admitting Diagnosis Discharge Date 11/30/2023 Admitting Diagnosis Acute appendicitis DS: Discharge Diagnosis Discharge Diagnosis (1) Acute appendicitis: Code(s): K35.80 - Unspecified acute appendicitis Status: Acute (2) Type 2 diabetes mellitus without complications: Code(s): E11.9 - Type 2 diabetes mellitus without complications Status: Acute Assessment and Plan: Glucose monitored while she was hospitalized with Accu-Cheks. Home medications resumed postoperatively. No acute issues. Follow-up with PCP. (3) Hypertension: Code(s): I10 - Essential (primary) hypertension Status: Acute Assessment and Plan: Blood pressure remains stable. No acute issues. Follow-up with PCP. (4) Sleep apnea in adult: Code(s): G47.30 - Sleep apnea, unspecified Status: Acute Assessment and Plan: Non compliant with CPAP. No acute issues. (5) Hyperlipidemia: Code(s): E78.5 - Hyperlipidemia, unspecified Status: Acute DS: Summary Hospital Course Reason for hospitalization: This is a 58-year-old woman who presented to the ER for complaints of abdominal pain for 1 day. Workup revealed leukocytosis and CT evidence of acute appendicitis. No perforation or abscess on CT. She was admitted in this setting. Hospital Course: She was started on broad-spectrum IV antibiotics and decision was made to proceed with surgery. She had a laparoscopic appendectomy by Dr. Lugo on 11/29/2023. She was tachycardic on admission and EKG confirmed sinus tachycardia. This was likely related to the infection and her tachycardia improved. Her heart rate was in the low 100s prior to discharge. Her blood pressure was stable throughout the day. Her diet was slowly advanced and she was tolerating a diet. She was tolerating activity. Pain was well controlled. Discussed the case with Dr. Lugo who felt she was stable for discharge postop day 1. No perforation or abscess seen during surgery. She was discharged with pain medication but no need for antibiotics. Status at Discharge Functional status at discharge: independent ambulation Overall status at discharge: patient is progressing back to baseline Time Spent with Patient Time attestation: Total time spent providing and/or coordinating discharge services: Exam Const: General: comfortable and no acute distress Resp: Effort & Inspection: normal respiratory effort Auscultation: clear to auscultation bilaterally Cardio: Rate: regular rate Rhythm: regular rhythm GI: Inspection: non-distended and incision (incisions dry and intact) GI Palp: Yes Soft to palpation, Yes Tenderness to palpation present (GI) (incisional) and No Guarding due to palpation present (GI) Auscultation: normal bowel sounds Neuro: General: moves all extremities and no focal motor deficits Extrem: General: no calf tenderness and no edema Psych: Mental Status: mental status grossly normal Insight: Good insight present (Psych) DS: Data Data Completed and Pending Pending studies at discharge: Pending at discharge 11/29/23 17:05 Surgical [PTH] Routine Labs on day of discharge: Labs from last 24 hours 11/30/23 11/30/23 11/30/23 11:57 08:23 06:31 WBC RBC Hgb Hct MCV MCH MCHC RDW Plt Count MPV Immature Gran % (Auto) Neut % (Auto) Lymph % (Auto) [place] % (Auto) Eos % (Auto) Baso % (Auto) Lymph # (Auto) [place] # (Auto) Eos # (Auto) Baso # (Auto) Abs Immat Gran (auto) Absolute Neuts (auto) Absolute Nucleated RBC Nucleated RBC % Sodium Potassium Chloride Carbon Dioxide Anion Gap BUN Creatinine Estim Creat Clear Calc Estimated GFR Glucose POC Capillary Glucose 176 H 138 H 144 H Calcium 11/30/23 11/29/23 04:29 23:56 WBC 14.1 H RBC 4.08 L Hgb 13.3 Hct 40.1 MCV 98.3 MCH 32.6 MCHC 33.2 RDW 11.4 L Plt
[2023-11-30 16:49] LABS: Glucose Point of Care 149 mg/dl (65-105)
== END 2023-11-30 17:10 | disposition home or self-care (01) | DRG 399 ==
LOC: ANHED 11-29 05:15 → ANH2MED 11-29 05:46
PROVIDERS: Surgery; Admitting Provider Surgery; Emergency Provider Emergency Medicine; PCP Internal Medicine; Visit Provider Nurse Practitioner Family
PROC: 0DTJ4ZZ Resection of Appendix, Percutaneous Endoscopic Approach (ICD-10-PCS; CPT 44970; principal; 2023-11-29 15:30)
DX: K35.80 Unspecified acute appendicitis (principal); I10 Essential (primary) hypertension; E78.5 Hyperlipidemia, unspecified; E11.9 Type 2 diabetes mellitus without complications; E66.9 Obesity, unspecified; J45.909 Unspecified asthma, uncomplicated; G47.33 Obstructive sleep apnea (adult) (pediatric); Z91.198 Patient's noncompliance with other medical treatment and regimen for other reason; Z68.31 Body mass index [BMI] 31.0-31.9, adult; Z90.710 Acquired absence of both cervix and uterus; Z87.891 Personal history of nicotine dependence
CPT/HCPCS: 36415; 71045; 74177; 80048; 80053; 81001; 82948; 83605; 83690; 85025; 88304; 93005; 96361; 96365; 96375; 96376; 99285; A9270; J0330; J1100; J1170; J1741; J1885; J2250; J2405; J2543; J2704; J3010; J7030; J7120; Q9967